=== PATIENT | male | born 1970 | race Caucasian/White ===

== ENCOUNTER → 2018-09-29 11:56 | Outpatient (CLI) | payer OTHER, SELFPAY ==
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
== END ==
PROVIDERS: Visit Provider Physician Assistant
DX: R10.9 Unspecified abdominal pain (principal)
CPT/HCPCS: 71101

== ENCOUNTER → 2020-06-20 11:09 | Outpatient (CLI) | payer OTHER, SELFPAY ==
--- NOTE | 2020-06-20 | DI.MRI.S_ITS ---
PROCEDURE: MR SHOULDER RT WO CON INDICATIONS: Unspecified disorder of synovium and tendon, right TECHNIQUE: Noncontrast oblique coronal T2 fast spin echo with fat saturation, oblique sagittal T1 spin echo and T2 fast spin echo with fat saturation, axial T1 spin echo and T2 fast spin echo with fat saturation through the shoulder. COMPARISON: None. FINDINGS: Image quality: Excellent. Rotator cuff: Supraspinatus tendinopathy with partial thickness bursal sided tear . Infraspinatus tendinopathy and thickening is present. The teres minor appears grossly intact. Subscapularis mild tendinopathy. No atrophy of the rotator cuff muscles although mild fatty infiltration of the supraspinatus and infraspinatus muscles. Bones and bursae: Fracture of the greater tuberosity is seen with associated marrow edema. Moderate hypertrophic acromioclavicular joint degeneration. Moderate glenohumeral degenerative joint disease also noted. Acromion demonstrates conventional anatomy, without an os acromiale. Moderate to severe subacromial-subdeltoid bursitis. Capsule and soft tissues: Labrum: Circumferential ill-defined internal signal changes within labrum in particular the superior, anterior and posterior segments, without definite fluid signal intensity. This suggests long-standing degeneration or chronic remote tear. There is associated glenoid rim sclerosis in particular at the anterior and posterior segments. Long head of the biceps tendon intact. The rotator interval appears normal, without fibrosis. Coracohumeral ligament intact. IMPRESSION: Fracture of the greater tuberosity with associated marrow edema. Supraspinatus tendinopathy with partial-thickness bursal sided tear. Infraspinatus and subscapularis tendinopathy. Moderate to severe subacromial-subdeltoid bursitis Circumferential labral degeneration versus chronic tear. Dictated by: Tristian Astudillo M.D. on 06/20/2020 at 12:13 Approved by: Tristian Astudillo M.D. on 06/20/2020 at 12:23
== END ==
PROVIDERS: Referring Provider Orthopaedic Surgery; Visit Provider Orthopaedic Surgery
DX: S42.251A Displaced fracture of greater tuberosity of right humerus, initial encounter for closed fracture (principal); X58.XXXA Exposure to other specified factors, initial encounter; S46.011A Strain of muscle(s) and tendon(s) of the rotator cuff of right shoulder, initial encounter; M75.51 Bursitis of right shoulder
CPT/HCPCS: 73221

== ENCOUNTER → 2022-03-30 11:38 | Outpatient (CLI) | payer OTHER, SELFPAY ==
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
== END ==
PROVIDERS: Referring Provider Student in an Organized Health Care Education/Training Program; Visit Provider Student in an Organized Health Care Education/Training Program
DX: M47.816 Spondylosis without myelopathy or radiculopathy, lumbar region (principal); M54.50 Low back pain, unspecified
CPT/HCPCS: 72100

== ENCOUNTER → 2022-04-07 13:20 | Outpatient (CLI) | payer OTHER, SELFPAY ==
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
== END ==
PROVIDERS: Referring Provider Orthopaedic Surgery; Visit Provider Orthopaedic Surgery
DX: S32.020A Wedge compression fracture of second lumbar vertebra, initial encounter for closed fracture (principal); M51.46 Schmorl's nodes, lumbar region; M51.36 Other intervertebral disc degeneration, lumbar region; M47.816 Spondylosis without myelopathy or radiculopathy, lumbar region; M47.817 Spondylosis without myelopathy or radiculopathy, lumbosacral region
CPT/HCPCS: 72148